=== PATIENT | male | born 1975 | race African-American/Black ===

== ENCOUNTER 2020-11-06 14:17 | Emergency (ER) | payer SELFPAY | END 2020-11-06 15:24 | disposition home or self-care (01) | LOC: MADERS 14:17 | DX: E11.40 Type 2 diabetes mellitus with diabetic neuropathy, unspecified (principal); E11.65 Type 2 diabetes mellitus with hyperglycemia; I10 Essential (primary) hypertension; F17.210 Nicotine dependence, cigarettes, uncomplicated; Z71.6 Tobacco abuse counseling; Z79.84 Long term (current) use of oral hypoglycemic drugs; Z79.899 Other long term (current) drug therapy | CPT/HCPCS: 36416; 99406 ==

== ENCOUNTER 2021-01-05 09:37 | Emergency (ER) | payer SELFPAY ==
[2021-01-05 10:34] LABS: #Basophils 0.1 thou/uL (0.0-0.2); #Eosinphils 0.2 thou/uL (0.0-0.7); #Lymphocytes 1.2 thou/uL (1.20-3.40); #Monocytes 0.5 thou/uL (0.11-0.59); #Neutrophils 5.8 thou/uL (1.40-6.50); %Lymphocytes 15.7 % (21.0-51.0); %Monocytes 6.9 % (0.0-10.0); %Neutrophils 74.4 % (42.0-75.0); Hemoglobin 15.4 g/dL (14.0-18.0); Mean Corpuscular HGB CONC 34.2 g/dL (32.0-36.0); Mean Corpuscular Hemoglobin 30.8 pg (27.0-31.0); Mean Platelet Volume 6.4 fL (7.4-10.4); Platelet Count 324 thou/uL (130-400); White Blood Cell (WBC) Count 7.8 thou/uL (4.8-10.8)
[2021-01-05 10:43] LABS: Anion Gap 18 mmol/L (10-20); BUN (Urea Nitrogen) 9 mg/dL (8.9-20.6); Calc. Creatinine Clearance 0 mL/min (70-130); Calcium 9.5 mg/dL (7.8-10.44); Carbon Dioxide 21 mmol/L (22-29); Chloride 101 mmol/L (98-107); Glucose 326 mg/dL (70-105); Sodium 136 mmol/L (136-145)
[2021-01-05 11:07] LABS: Bicarbonate (HCO3v) 24.8 mmol/L (22.0-28.0); CO2 Tension (PvCO2) 43.8 mmHg (40.0-50.0); Calcium, Ionized 1.2 mmol/L (1.15-1.33); Hemoglobin - Calc 16.5 g/dL (14.0-18.0); Potassium 3.8 mmol/L (3.5-5.1); T. Carbon Dioxide 26.1 mmol/L (22.0-28.0); vO2 Saturation-calc 90.8 % (60.0-85.0)
== END 2021-01-05 11:20 | disposition home or self-care (01) ==
LOC: MADERS 09:37
DX: E11.42 Type 2 diabetes mellitus with diabetic polyneuropathy (principal); E11.65 Type 2 diabetes mellitus with hyperglycemia; I10 Essential (primary) hypertension; F17.210 Nicotine dependence, cigarettes, uncomplicated; Z79.84 Long term (current) use of oral hypoglycemic drugs; Z79.899 Other long term (current) drug therapy
CPT/HCPCS: 36415; 36416; 80048; 82330; 82803; 85025; 99284